=== PATIENT | male | born 1975 | race Caucasian/White ===

== ENCOUNTER 2024-02-25 10:21 | Emergency (ER) | payer OTHER ==
[~2024-02-25] VITALS: Ht 165.1 cm; Wt 91.6 kg
[2024-02-25 10:34] VITALS: BP 128/87; PULSE 80; RESP 18; TEMP 97.8; O2SAT 98
[2024-02-25] MEDS: guaiFENesin DM 200/20 MG-10 ML 10 ML UDC PO ONE (11:27)
[2024-02-25] MEDS ORDERED: GUAI237L61 PO (12:03)
[2024-02-25] MEDS ORDERED: AMOX-1230 PO (12:03)
[2024-02-25 12:11] VITALS: BP 120/82; PULSE 78; RESP 16; TEMP 98; O2SAT 99
== END 2024-02-25 12:11 | disposition home or self-care (01) ==
LOC: MED 10:21
DX: J32.9 Chronic sinusitis, unspecified (principal); J40 Bronchitis, not specified as acute or chronic; Z79.899 Other long term (current) drug therapy
CPT/HCPCS: 99283